=== PATIENT | male | born 2000 | race African-American/Black ===

== ENCOUNTER 2023-07-26 16:17 | Emergency (ER) | payer SELFPAY ==
--- NOTE | ~2023-07-26 | CT_ITS ---
EXAMINATION: CT brain wo con DATE: 07/26/2023 16:57 INDICATION: multiple seizures . TECHNIQUE: Computed tomography (CT) of the head was performed without intravenous contrast. The mA wa s adjusted according to patient size. Iterative reconstruction technique was employed. The dose-lengt h product was 681.00 mGy-cm. COMPARISON: None. FINDINGS: No acute intracranial hemorrhage or extra-axial fluid collection. No hydrocephalus, mass, or herniation. No acute ischemic infarct. Unremarkable dural venous sinus attenuation. No acute osseous abnormality. Posterior lindsay hole at the midline, with overlying 1.8 cm fluid collect ion and soft tissue irregularity. The aerated spaces are clear. Left posterior parietal approach WIG COMBER shunt, terminating in the interhemispheric fissure. 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 IMPRESSION: No acute intracranial process. 1.8 cm posterior scalp fluid collection at the midline, near the vertex, may be related to a recently removed WIG COMBER shunt. Other fluid collection is not excluded. Correlate with surgical history. Chronic/congenital intracranial findings, comparison to outside studies would be helpful. Reviewed, dictated and finalized at location K. IMPRESSION: No acute intracranial process. 1.8 cm posterior scalp fluid collection at the midline, near the vertex, may be related to a recently removed WIG COMBER shunt. Other fluid collection is not excluded . Correlate with surgical history. Chronic/congenital intracranial findings, comparison to outside studies would b e helpful.
[2023-07-26 16:18] VITALS: BP 134/78; PULSE 126; RESP 22; TEMP 36.8; O2SAT 100
--- NOTE | 2023-07-26 16:42 | ED.SEIZURE ---
HPI - Seizure General Chief Complaint: Seizure Stated Complaint: SEIZURE Time Seen by Provider: 07/26/23 16:22 History of Present Illness HPI Narrative: Patient is a 23 year old male with history of seizures here with seizures. He notes he had 3 seizures today, also said he had a seizure yesterday. He states he takes his medications, he is unsure of what medication he takes. He is a fairly poor historian. Spoke with patient's step mom, she notes that today patient got overly excited, and this triggered 2 seizures. Patient has a history of seizures, takes Depakote and Keppra, reportedly is compliant with his medications. She notes that he is his own decision maker and has capability to refuse lab work and hospitalization should he desire to. Related Data Allergies Allergy/AdvReac Type Severity Reaction Status Date / Time ibuprofen Allergy Unknown Verified 07/26/23 18:50 Review of Systems Review of Systems: All systems reviewed & are unremarkable except as noted in HPI and below Exam Narrative: GENERAL: Well-appearing, well-nourished, and in no acute distress. HEAD: Normocephalic, atraumatic. EYES: PERRLA and EOMI. ENT: Nares clear. Mucous membranes moist. NECK: Supple. CHEST: Clear to auscultation. No respiratory distress. HEART: Regular rate and rhythm. Normal peripheral pulses. ABDOMEN: Soft, nontender, nondistended. EXTREMITIES: Normal range of motion. No edema. SKIN: Warm, dry, no rash. NEURO: No focal deficits. Alert and oriented x3. PSYCH: Normal mood and affect. Course Course Emergency Course: Chart review performed. Patient here with multiple seizures. No prior visits in our system. Patient seen and evaluated, non toxic appearing, alert, appears to be at his baseline. Notes he had 3 seizures today, not a great historian. Will attempt to get ahold of family. 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 No prior imaging at our facility for comparison. Patient refused all lab work. I spoke with patient's step mom who confirms that he has decision making capabilities and she feels comfortable with him being discharged should he prefer that. Will load him with Keppra and have family come and pick him up. I discussed with both family and the patient that typically with multiple seizures occurring in 1 day we would admit him to the hospital to be seen by Neurology in optimized medically, he would prefer to be discharged home and follow-up with his neurologist. Advised him to follow up with his neurologist. The results of pertinent diagnostic studies and exam findings were discussed. The patient?s provisional diagnosis and plan of care were discussed with the patient and present family. The patient and/or present family expressed understanding of the diagnosis and plan. The nurse was instructed to provide written instructions and appropriate follow-up information. The patient understands their need and responsibility to obtain additional follow-up as instructed. The risks of medications administered and prescribed were discussed with the patient and family present. Vital Signs Vital signs: Vital Signs Temperature 98.3 F 07/26/23 16:18 Pulse Rate 126 H 07/26/23 16:18 Respiratory Rate 22 H 07/26/23 16:18 Blood Pressure 134/78 07/26/23 16:18 Pulse Oximetry 100 07/26/23 16:18 Oxygen Delivery Room Air 07/26/23 16:18 Temperature 98.3 F 07/26/23 16:18 Pulse Rate 95 07/26/23 18:49 Respiratory Rate 20 07/26/23 18:49 Blood Pressure 134/78 07/26/23 16:18 Pulse Oximetry 100 07/26/23 18:49 Oxygen Delivery Room Air 07/26/23 18:49 Discharge Plan Discharge Clinical Impression: Breakthrough seizure Patient Disposition: Home, Self-Care Condition: Stable Instructions: Antibiotic Form, Epilepsy (ED) Additional Instructions: Continue to take your medications as prescribed. Contact your neurologi
--- NOTE | 2023-07-26 17:49 | PC.NURSE ---
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
[2023-07-26 18:48] VITALS: PULSE 92
[2023-07-26 18:49] VITALS: PULSE 95; RESP 20; O2SAT 100
[2023-07-26] MEDS: Please add drug allergy info to patient profile. 1 EACH XX (18:50)
[2023-07-26] MEDS: levETIRAcetam 1000MG/NACL100ML 1,000 MG/100 ML BAG 400 MG IVPB (18:50)
--- NOTE | 2023-07-26 18:57 | PC.NURSE ---
Attempted to call pts step mother for a ride home for pt.
--- NOTE | 2023-07-26 19:20 | PC.NURSE ---
Pts step mother states she is on her way to get the pt.
== END 2023-07-26 19:26 | disposition home or self-care (01) ==
PROVIDERS: Emergency Provider Student in an Organized Health Care Education/Training Program
DX: G40.909 Epilepsy, unspecified, not intractable, without status epilepticus (principal)
CPT/HCPCS: 70450; 96374; 99284; J1953

== ENCOUNTER 2023-11-06 20:15 | Emergency (ER) | payer SELFPAY ==
--- NOTE | ~2023-11-06 | CT_ITS ---
EXAMINATION: CT brain wo con DATE: 11/06/2023 22:11 INDICATION: seizure, hx of shunt . TECHNIQUE: Computed tomography (CT) of the head was performed without intravenous contrast. The mA wa s adjusted according to patient size. Iterative reconstruction technique was employed. The dose-lengt h product was 756.67 mGy-cm. COMPARISON: 07/26/2023. FINDINGS: No acute intracranial hemorrhage or extra-axial fluid collection. No hydrocephalus, mass, or herniation. No acute ischemic infarct. Unremarkable dural venous sinus attenuation. No acute osseous abnormality. The aerated spaces are clear. Craniosynostosis. Unchanged posterior lindsay hole near the vertex with overlying 1.8 cm soft tissue flu id collection. 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 IMPRESSION: No acute intracranial process. Unchanged 1.8 cm posterior scalp fluid collection overlying an old shunt lindsay hole, may represent chr onic seroma or CSF collection. Reviewed, dictated and finalized at location K. IMPRESSION: No acute intracranial process. Unchanged 1.8 cm posterior scalp fluid collection overlying an old shunt lindsay h ole, may represent chronic seroma or CSF collection.
[2023-11-06 20:16] VITALS: BP 127/82; PULSE 91; RESP 15; TEMP 37; O2SAT 100
[2023-11-06 20:27] VITALS: PULSE 90
[2023-11-06 20:29] VITALS: BP 127/82; PULSE 90; RESP 16; TEMP 37; O2SAT 100
--- NOTE | 2023-11-06 20:31 | ECG_ITS ---
Test Date: 2023-11-06 21:38:37 Measurements Intervals [place] Rate: 70 P: 65 IN: 143 QRS: 44 QRSD: 92 T: 43 QT: 358 QTc: 387 Interpretive Statements SINUS RHYTHM WITH SINUS ARRHYTHMIA NORMAL ELECTROCARDIOGRAM No previous ECG available for comparison Electronically Signed On 11-07-2023 07:24:25 CDT by Leighton Palencia M.D.
[2023-11-06 20:40] LABS: Basophils Percent Auto 0.3 % (0.2-1.2); Eosinophils Percent Auto 0.5 % (0-4.4); Hematocrit 39.2 % (42.0-52.0); Immature Granulocyte Absolute 0.02 K/mm3 (0.00-0.031); Immature Granulocyte Percent A 0.3 % (0-0.5); Lymphocytes Absolute Auto 1.66 K/mm3 (0.9-3.2); Lymphocytes Percent Auto 21.2 % (18.3-44.2); Mean Corpuscular HGB Conc 33.2 g/dl (32-36); Mean Corpuscular Hemoglobin 29.8 pg (26-34); Mean Corpuscular Volume 89.9 fl (80-100); Mean Platelet Volume 9.9 fl (7.4-10.4); Monocytes Absolute Auto 0.7 K/mm3 (0.1-0.6); Neutrophils Absolute Auto 5.4 K/mm3 (1.3-6.7); Neutrophils Percent Auto 68.7 % (45.5-73.1); Platelet Count Result 194 k/mm3 (150-375); Red Blood Count 4.36 M/mm3 (4.6-6.20); Red Cell Distribution Width 12.9 % (11.5-14.5); White Blood Count 7.8 K/mm3 (4.5-10.0)
[2023-11-06 20:49] LABS: Alanine Aminotransferase 16 U/L (6-50); Albumin Level 4.6 g/dL (3.5-5.1); Alkaline Phosphatase 72 U/L (38-126); Anion Gap 11 mmol/L (4-12); Aspartate Amino Transferase 26 U/L (17-59); Bilirubin,Total 0.8 mg/dL (0.2-1.3); Blood Urea Nitrogen 13 mg/dL (9-20); Calcium 9.6 mg/dL (8.4-10.2); Carbon Dioxide 23 mmol/L (22-30); Chloride 111 mmol/L (98-107); Estimated CRCL calculation 124 ml/min; Estimated Glomerular Filt Rate > 60; Glucose 69 mg/dL (65-110); Sodium 145 mmol/L (137-145)
[2023-11-06] MEDS: levETIRAcetam 1000MG/NACL100ML 1,000 MG/100 ML BAG 400 MG IVPB (22:25)
[2023-11-06] MEDS: SODIUM CHLORIDE 0.9% IV 1,000 ML 999 ML IV CONT (22:29)
[2023-11-06 22:55] VITALS: BP 123/81; PULSE 72; RESP 18; O2SAT 100
[2023-11-07 00:55] VITALS: BP 126/84; PULSE 80; RESP 17; O2SAT 96
--- NOTE | 2023-11-07 01:21 | ED.GENADULT ---
HPI - General Adult General Chief complaint: Seizure Stated complaint: multiple seizures today Time Seen by Provider: 11/06/23 21:50 History of Present Illness HPI narrative: patient is a 23-year-old gentleman presents emergency department with chief complaint of seizures. Patient has prior history of seizures takes Keppra and reports that he missed some doses of his Keppra. Patient had approximately 4 witnessed seizures of having arrived to the emergency department reports that he is back to his baseline. The patient reports no headache denies pain anywhere denies any injury Related Data Allergies Allergy/AdvReac Type Severity Reaction Status Date / Time ibuprofen Allergy Unknown Verified 07/26/23 18:50 Review of Systems Review of Systems: A 10 system review of systems was completed on the patient and is negative except for what is stated in the HPI. Nursing and ancillary documentation was reviewed. Exam Narrative: GENERAL: Well-appearing, well-nourished, and in no acute distress. HEAD: Normocephalic, atraumatic. EYES: PERRLA and EOMI. ENT: Nares clear, no rhinorrhea or epistaxis. Mucous membranes moist. NECK: Supple. CHEST: Clear to auscultation. No respiratory distress. HEART: Regular rate and rhythm. No murmur heard. Normal peripheral pulses. ABDOMEN: Soft, nontender, nondistended, normal active bowel sounds. EXTREMITIES: Normal range of motion. No edema. SKIN: Warm, dry, no rash. NEURO: No focal deficits. Alert and oriented x3. PSYCH: Normal mood and affect. Course Vital Signs Vital signs: Vital Signs Temperature 37.0 C 11/06/23 20:16 Pulse Rate 91 11/06/23 20:16 Respiratory Rate 15 11/06/23 20:16 Blood Pressure 127/82 11/06/23 20:16 Pulse Oximetry 100 11/06/23 20:16 Oxygen Delivery Room Air 11/06/23 20:16 Temperature 37.0 C 11/06/23 20:29 Pulse Rate 76 11/07/23 03:24 Respiratory Rate 18 11/07/23 03:24 Blood Pressure 122/65 11/07/23 03:24 Pulse Oximetry 96 11/07/23 03:24 Oxygen Delivery Room Air 11/06/23 20:29 Medical Decision Making [facility] Narrative Medical decision making narrative: Differential diagnosis includes breakthrough seizure, noncompliance with medication laboratory studies were within normal limits patient is back to baseline neurological status the patient was given an IV load of Keppra in the emergency department once family to be contacted the patient will be discharged home to follow-up with his neurologist Vital Signs Vital Signs: Vital Signs Temperature 37.0 C 11/06/23 20:16 Pulse Rate 91 11/06/23 20:16 Respiratory Rate 15 11/06/23 20:16 Blood Pressure 127/82 11/06/23 20:16 Pulse Oximetry 100 11/06/23 20:16 Oxygen Delivery Room Air 11/06/23 20:16 Temperature 37.0 C 11/06/23 20:29 Pulse Rate 76 11/07/23 03:24 Respiratory Rate 18 11/07/23 03:24 Blood Pressure 122/65 11/07/23 03:24 Pulse Oximetry 96 11/07/23 03:24 Oxygen Delivery Room Air 11/06/23 20:29 Lab Data 11/06/23 20:33 11/06/23 20:33 Labs: Lab Results 11/06/23 11/06/23 Range/Units 20:32 20:33 WBC 7.8 (4.5-10.0) K/mm3 RBC 4.36 L (4.6-6.20) M/mm3 Hgb 13.0 L (14.0-18.0) g/dL Hct 39.2 L (42.0-52.0) % MCV 89.9 (80-100) fl MCH 29.8 (26-34) pg MCHC 33.2 (32-36) g/dl RDW 12.9 (11.5-14.5) % Plt Count 194 (150-375) k/mm3 MPV 9.9 (7.4-10.4) fl Immature Gran % (Auto) 0.3 (0-0.5) % Neut % (Auto) 68.7 (45.5-73.1) % Lymph % (Auto) 21.2 (18.3-44.2) % Eagle % (Auto) 9.0 H (2.6-8.5) % Eos % (Auto) 0.5 (0-4.4) % Baso % (Auto) 0.3 (0.2-1.2) % Lymph # (Auto) 1.66 (0.9-3.2) K/mm3 Eagle # (Auto) 0.7 H (0.1-0.6) K/mm3 Eos # (Auto) 0.0 (0-0.3) K/mm3 Baso # (Auto) 0.0 (0.0-0.1) K/mm3 Abs Immat Gran (auto) 0.02 (0.00-0.031) K/mm3 Absolute Neuts (auto) 5.4 (1.3-6.7) K/mm3 Absolute Nucleated RBC 0.000
--- NOTE | 2023-11-07 01:33 | PC.NURSE ---
This RN has attempted to call pt step mother multiple times and received no answer. Unable to leave voicemail due to it being full. Pt unable to give any other family numbers.
--- NOTE | 2023-11-07 02:54 | PC.NURSE ---
Attempted to call pt's step mother without success. Phone rings, but then mailbox is full and unable to leave message. Able to send SMS message. Will wait approx 30 min and then try again.
[2023-11-07 03:24] VITALS: BP 122/65; PULSE 76; RESP 18; O2SAT 96
--- NOTE | 2023-11-07 03:59 | PC.NURSE ---
[place] [employer] notified of need for well check since we have been trying to reach pt's mother for 4 hours.
== END 2023-11-07 04:43 | disposition home or self-care (01) ==
PROVIDERS: Physician Assistant; Emergency Provider Emergency Medicine
DX: G40.909 Epilepsy, unspecified, not intractable, without status epilepticus (principal); T42.6X6A Underdosing of other antiepileptic and sedative-hypnotic drugs, initial encounter; Z98.2 Presence of cerebrospinal fluid drainage device
CPT/HCPCS: 36415; 70450; 80053; 83605; 85025; 93005; 96361; 96365; 99284; J1953; J7030